=== PATIENT | male | born 1965 | race Caucasian/White ===

== ENCOUNTER 2017-11-02 11:44 | Outpatient (CLI) | payer BC ==
[~2017-11-02] VITALS: Ht 190.5 cm; Wt 108.5 kg
--- NOTE | ~2017-11-02 | HP ---
PATIENT: REG ENRIQUEZ MEDICAL RECORD: [id number] ACCOUNT: [id number] LOCATION:[facility] [place] 67 ADMISSION DATE: 11/02/17 HISTORY AND PHYSICAL EXAMINATION ADMITTING DIAGNOSES: 1. Claudication, left leg. 2. Peripheral vascular disease. 3. Angina. 4. Coronary disease. HISTORY OF PRESENT ILLNESS: This is a gentleman with a past history of coronary disease as well as peripheral vascular disease, presents with left leg pain as well as anginal symptomatology. Troponin is elevated. EKG has nonspecific ST-T abnormalities. His left leg intervention was approximately a year and a half ago, was only balloon expandable and balloon angioplasty. This was done in [place]. His last cardiac intervention, which was also done in [place], was approximately 3 years ago. He is not on Plavix at this time. ALLERGIES: No known drug allergies. REVIEW OF SYSTEMS: The patient reports easy bruising but reports no swollen glands. The patient reports no fever, no night sweats, no significant weight gain, no significant weight loss. No significant exercise tolerance. The patient reports no dry eyes, no irritation, no vision change. Patient reports no difficulty hearing and no ear pain. Patient reports no frequent nose bleeds or nose and sinus problems. Patient reports on arm pain on exertion. No shortness of breath while lying down. No history of heart murmur. Patient reports no cough, no wheezing or coughing up blood. Patient reports no abdominal pain, no vomiting. Normal appetite. No diarrhea and not vomiting blood. No nausea and no constipation. Patient reports no incontinence. No difficulty urinating. No hematuria. No increased frequency. Patient reports no muscle aches. No weakness, no arthralgias, no back pain. No swelling of the extremities. Patient reports no abnormal mole, no jaundice, no rashes. Reports no loss of consciousness. No weakness and no numbness. No seizures, dizziness, or headaches. The patient reports no depression, no sleep disturbance, feeling safe in a relationship and no alcohol abuse. Patient reports on fatigue. Reports no runny nose or sinus pressure. No itching, no hives, and no frequent sneezing. PHYSICAL EXAMINATION: GENERAL APPEARANCE: Well-nourished, well-developed, appears stated age. Level of distress, comfortable. PSYCHIATRIC: Mental status, alert, normal affect. Orientation, oriented to time, place and person. EYES: Lids and conjunctiva, noninjected. No discharge, no pallor. ENT: Lips, teeth, gums, normal dentition. Oropharynx, no cyanosis, no pallor. NECK: Carotid arteries, bilateral normal upstroke, no bruits, no thrills. JUGULAR VEINS: No jugular venous pressure or distention. CERVICAL LYMPH NODES: Nontender, nonenlarged. THYROID: Not enlarged. Nontender. No nodules. LUNGS: Respiratory effort, unlabored. CHEST: Normal curvature. No thoracic deformity. No chest wall tenderness. Percussion, resonant. Auscultation, clear. No wheezes, no rales, no rhonchi. CARDIOVASCULAR: Precordial exam, nondisplaced. No heaves or pericardial HISTORY AND PHYSICAL [id number] REG ENRIQUEZ thrmayco. Rate and rhythm, regular. Heart sounds, normal S1, normal S2. No S3, no gallop, no rub. Systolic murmur, not heard. Diastolic murmur, not heard. EXTREMITIES: No cyanosis, no edema. Peripheral pulses, full and equal in all extremities, except as noted. No bruits appreciated. ABDOMEN: Soft, nondistended. Normal aorta. No bruit. Nontender. No masses. Liver, nontender, no hepatomegaly. Spleen, nontender, no splenomegaly. MUSCULOSKELETAL: No joint tenderness. No joint swelling. No erythema. NEUROLOGICAL: Normal gait, normal strength, normal tone. SKIN: Warm and dry. OVERALL IMPRESSION: Angina with elevated troponin, claudication and peripheral vascular disease, most likely he has recurrent hemodynamically significant disease, coronary and peripheral, we will proceed with angiography. Further care depends upon findings of the angiography. TRANSINT:[id number] Voice Confirmation ID: [id number] DOCUMENT ID: [id number] JASVIR PEPE MD CC: [id number] DICTATION DATE: 11/02/17 1457 PIPE FITTER HELPER: 11/02/17 1508 ADM IN [id number] [place] [address]
--- NOTE | ~2017-11-02 | DS ---
PATIENT:REG ENRIQUEZ :67 MEDICAL RECORD: [id number] DISCHARGE SUMMARY ADMISSION DATE: 11/02/17 DISCHARGE DATE: 11/03/17 DIAGNOSES: 1. Unstable angina. 2. PTCA and stent of RCA on this admission. 3. Coronary artery disease. 4. Claudication. 5. Peripheral vascular disease. 6. ENTERPRISE APPLICATION ARCHITECT and stent of left popliteal. 7. Atrial fibrillation, chronic. 8. Hyperlipidemia. HOSPITAL COURSE: Mr. Enriquez presents with unstable angina as well as claudication symptomatology, found to have significant disease of the RCA and found to have significant disease of left popliteal. He underwent successful revascularization of both territories. Discharged home with addition of aspirin and Plavix to his medical regimen. He will follow up with [facility] in one month. TRANSINT:[id number] Voice Confirmation ID: [id number] DOCUMENT ID: [id number] JASVIR PEPE MD CC: [id number] DICTATION DATE: 11/03/17 105 IMPORT SPECIALIST: 11/03/172201 DIS IN 11/03/17 [facility] [address] [id number]
--- NOTE | ~2017-11-02 | HEMODYNAMI ---
PATIENT:REG ENRIQUEZ MEDICAL RECORD: [id number] : 67 LOCATION:[facility] D.2117 ADMISSION DATE: 11/02/17 Generatedon:11/03/201710:58 Patient name: REG ENRIQUEZ Patient #: [id number] SSN: : 1965 Date of study: 11/03/2017 Page: Of Hemodynamic Procedure Report Patient Data Patient Demographics Procedure consent was obtained First Name: REG Gender: Male Last Name: MINA : 1965 Patient #: [id number] Age: 51 year(s) Race: Unknown Additional ID: [id number] Contact details Address: [address] [place] [address] State: [place] City: [facility] Zip code: [address] Admission Admission Data Admission Date: 11/02/2017 Admission Time: 14:33 Room #: D.2117 Procedure Procedure Types Cath Procedure Diagnostic Procedure LHC LHC w/Coronaries FFR/IVUS Intra-Coronary IVUS Initial PCI Procedure Coronary Stent Coronary Stent Initial Miscellaneous Procedures Moderate Sedation up to 30 minutes Peripheral Cath Diagnostic Procedure Cath Peripheral Hcwtn-Kpajwwm-Dkq-Off Peripheral vascular Intervention Angioplasty Angioplasty Tib-Per Initial Stent Stent-Tib/Per w/plasty Initial Procedure Description Procedure Date Procedure Date: 11/03/2017 Procedure Start Time: 10:12 Procedure End Time: 10:53 Procedure Staff Name Function Arabella Garcia RT Scrub Tanya Loco RT Monitor Mauri Watkins RN Nurse Evaristo Hankins MD Performing Physician Neha Cyr RN Nurse Procedure Data Cath Procedure Fluoroscopy Diagnostic fluoroscopy Total fluoroscopy Time: time: 11.7 min 11.7 min Diagnostic fluoroscopy Total fluoroscopy dose: 890 dose: 890 mGy mGy Contrast Material Contrast Material Type Amount (ml) Isovue 300 196 Entry Location Entry Primary Successful Side Size Upsize Upsize Entry Closure Succes sful Closure Location (Fr) 1 (Fr) 2 (Fr) Remarks Device Remarks Femoral Right 5 Fr 6 Fr 6 Fr Exoseal artery Short Long Estimated blood loss: 5 ml Diagnostic catheters Device Type Used For End Catheter Placement MULTIPACK JL 4.0 5Fr Left Coronary catheter Angiography MULTIPACK 3DRC 5Fr Right Coronary catheter Angiography DIAGNOSTIC IMT 5Fr Multi-vessel Catheter ([id number]) Angiography Procedure Complications No complications Procedure Medications Medication Administration Route Dosage 0.9% NaCl I.V. 100 ml/hr Oxygen NC 2 l/min Lidocaine 2% added to field 20 Heparin Flush Bag added to field 2 bags (1000units/500ml NS) Fentanyl I.V. 50 mcg Versed I.V. 1 mg Versed I.V. 1 mg Fentanyl I.V. 50 mcg Heparin Bolus I.V. 5000 units Hemodynamics Rest Heart Rate: 111 (bpm) Pressure Samples Time Site Value (mmHg) Purpose Heart Use Rate(bpm) 10:15 LV 125/30,39 Snapshot 77 Snapshots Pre Cath Intra NCS Post Cath Vital Signs Time Heart Resp SPO2 etCO2 NIBP (mmHg) Rhythm Pain Sedation Rate (ipm) (%) (mmHg) Status Level (bpm) 9:58:02 99 16 98 17.2 170/119(161) NSR 0 (11) 10(A) , No pain 10:02:59 100 20 98 23.3 167/127(146) NSR 0 (11) 10(A) , No pain 10:07:56 91 18 98 21 157/101(125) NSR 0 (11) 10(A) , No pain 10:12:54 84 20 97 5.2 162/105(126) NSR 0 (11) 10(A) , No pain 10:17:47 90 18 96 0 151/114(135) NSR 0 (11) 9(A) , No pain 10:22:37 76 18 95 33.8 155/107(137) NSR 0 (11) 9(A) , No pain 10:28:19 93 18 94 33.1 143/92(112) NSR 0 (11) 9(A) , No pain 10:33:08 85 19 95 33 144/105(124) NSR 0 (11) 9(A) , No pain 10:37:57 85 19 94 32.3 157/100(142) NSR 0 (11) 9(A) , No pain 10:43:39 84 19 96 32.3 153/95(125) NSR 0 (11) 9(A) , No pain 10:48:30 88 19 98 32.3 154/103(126) NSR 0 (11) 10(A) , No pain 10:53:19 77 20 94 28.6 145/100(110) NSR 0 (11) 10(A) , No pain Medications Time Medication Route Dose Verified Delivered Reason Not es Effectiveness by by 9:56:42 0.9% NaCl I.V. 100ml/hr Evaristo Solomon used for Cr Cyr RN procedure 9:56:50 Oxygen NC 2 l/min Evaristo Solomon Per physician Cr Cyr RN 9:56:57 Lidocaine 2% added 20ml Evaristo Evaristo for local to vial Cr Hankins MD anesthetic field 9:57:04 Heparin Flush added 2 bags Evaristorah Mendezrey used for Bag to Cr Hankins MD procedure (1000units/500ml field NS) 10:10:39 Fentanyl I.V. 50 mcg Evaristo Solomon for sedation Cr Cyr RN 10:10:49 Versed I.V. 1 mg Evaristo Shahfany for sedation Cr Cyr RN 10:14:33 Versed I.V. 1 mg Evaristo Shahfany for sedation Cr Cyr RN 10:14:38 Fentanyl I.V. 50 mcg Evaristo Shahfany for sedation Cr Cyr RN 10:20:39 Heparin Bolus I.V. 5000 Evaristo Neha for units Cr Cyr RN anticoagulation Procedure Log Time Note 9:42:00 Mauri Watkins RN sent for patient. Start room use. 9:42:08 Time tracking: Call back 9:42:12 Plan of Care:Hemodynamics will remain stable., Cardiac rhythm will remain stable., Comfort level will be maintained., Respiratory function will remain adequate., Patient/ family verbilizes understanding of procedure., Procedure tolerated without complication., Recovers from procedure without complications.. 9:50:24 Patient received from PCU to CCL 1 Alert and oriented. Tansferred to table in Supine position. 9:50:26 Correct patient and procedure confirmed by team. 9:50:26 Warm blankets applied, and reji hugger turned on for patient comfort. 9:50:28 Signed procedure consent form obtained from patient. 9:50:29 ECG and BP/O2 sat monitors applied to patient. 9:50:31 Full Disclosure recording started 9:55:40 Vital chart was started 9:56:42 0.9% NaCl 100ml/hr I.V. was administered by Neha Cyr RN; used for procedure; 9:56:50 Oxygen 2 l/min NC was administered by Neha Cyr RN; Per physician; 9:56:57 Lidocaine 2% 20ml vial added to field was administered by Evaristo Hankins MD; for local anesthetic; 9:57:04 Heparin Flush Bag (1000units/500ml NS) 2 bags added to field was administered by Evaristo Hankins MD; used for procedure; 10:01:32 Baseline sample Acquired. 10:01:47 Rhythm: sinus tachycardia 10:02:48 H&P Date Dictated: 11/02/2017 Within 30 days and on chart.. 10:02:50 Pre-op teaching completed and patient verbalized understanding. 10:02:50 Pre-procedure instructions explained to patient. 10:02:52 Family in waiting room. 10:02:53 Patient NPO since Midnight. 10:03:04 Is the patient allergic to Iodine/contrast media? No. 10:03:05 Was the patient premedicated? No 10:03:06 Is patient on blood thinner?Yes 10:03:09 ACC The patient was administered the following blood thiners within the last 24 hours: ACCPlavix 10:03:12 Patient diabetic? No. 10:03:15 Previous problem with sedation/anesthesia? No ? 10:03:19 Snore? No 10:03:26 Sleep apnea? No 10:03:27 Deviated septum? No 10:03:28 Opens mouth fully? Yes 10:03:29 Sticks out tongue? Yes 10:03:31 Airway obstruction? No ? 10:03:35 Dentures? No ? 10:03:54 Pre procedure: right dorsailis pedis pulse 1+ Palpable, but thready & weak; easily obliterated 10:03:57 Pre procedure: left dorsailis pedis pulse 1+ Palpable, but thready & weak; easily obliterated 10:04:00 Patient pain scale 0/10 ?. 10:04:33 Lab results completed and on chart. 10:04:42 Bilateral groins area was prepped with chlora-prep and draped in sterile fashion 10:04:43 Alarms reviewed by R. N. 10:04:44 Sharps counted by scrub and verified by R.N. 10:04:48 Physician arrived 10:04:49 Final Timeout: patient, procedure, and site verified with staff and physician. All members of the team are in agreement. 10:04:49 --------ALL STOP TIME OUT------ 10:04:51 Bilateral groins site verified by team. 10:04:55 Physical assessment completed. ASA score P 2 - A patient with mild systemic disease as per Evaristo Hankins MD. 10:04:59 Sedation plan: IV Moderate Sedation Medication:Versed, Fentanyl 10:05:19 Use device set Femoral Dx 10:05:21 ACIST Syringe (48732) opened to sterile field. 10:05:22 Medline Cath Pack ([id number]) opened to sterile field. 10:05:22 Bag Decanter (2002S) opened to sterile field. 10:05:23 SHEATH 5FR [place] (PFO913) opened to sterile field. 10:05:24 DIAGNOSTIC WIRE .035 260cm J wire (614818) opened to sterile field. 10:05:25 ACIST Hand Control (69487) opened to sterile field. 10:05:26 DIAGNOSTIC Multipack 5Fr catheter set ([id number]) opened to sterile field. 10:05:26 ACIST Manifold (38362) opened to sterile field. 10:05:27 Tegaderm 4 x 4 (1626W) opened to sterile field. 10:08:26 Zero performed for pressure channel P1 10:10:39 Fentanyl 50 mcg I.V. was administered by Neha Cyr RN; for sedation; 10::49 Versed 1 mg I.V. was administered by Neha Cyr RN; for sedation; 10:12:02 Procedure started. 10:12:27 Local anesthetic to right femoral artery with Lidocaine 2% by Evaristo Hankins MD.INITIAL ACCESS ONLY 10:12:38 A 5 Fr sheath was inserted into the Right Femoral artery 10:14:33 Versed 1 mg I.V. was administered by Neha Cyr RN; for sedation; 10:14:38 Fentanyl 50 mcg I.V. was administered by Neha Cyr RN; for sedation; 10:15:10 LV hemodynamics recorded. 10:15:11 LV gram done using SALINAS 10:15:19 EF : 20 % 10:15:47 Abdominal angiogram w/ runoff was performed. 10:17:03 Catheter removed. 10:17:10 A MULTIPACK JL 4.0 5Fr catheter was advanced over the wire and used for Left Coronary Angiography. 10:17:32 LCA angiography performed. 10:17:38 Injector settings: Ml/sec: 3, Volume: 6, 10:18:14 Catheter removed. 10:18:21 A MULTIPACK 3DRC 5Fr catheter was advanced over the wire and used for Right Coronary Angiography. 10:19:08 RCA angiography performed. 10:19:10 Injector settings: Ml/sec: 3, Volume: 6, 10:19:12 Catheter removed. 10:19:13 Proceeding to intervention. 10:20:10 GUIDE 6FR HS II catheter ([id number]) opened to sterile field. 10:20:11 [place] Raymond Eagleye IVUS Catheter (67465W) opened to sterile field. 10:20:12 INFLATOR Merit BasixCompak (KZ2128) opened to sterile field. 10:20:13 SHEATH 6FR Destination (RSR01) opened to sterile field. 10:20:14 SHEATH 6FR [place] (CFL169) opened to sterile field. 10:20:23 Sheath upsized to a 6 Fr Short. 10:20:28 6 Fr hs 2 guide catheter was inserted over the wire 10:20:39 Heparin Bolus 5000 units I.V. was administered by Neha Cyr RN; for anticoagulation; 10:21:40 GLIDE WIRE Super Stiff Angled 260cm (LA8481) opened to sterile field. 10:21:45 CHOICE PT Extra Support J 300cm guide wire ([id number]) opened to sterile field. 10:22:16 TORQUE DEVICE PLASTIC .038 ( TD01) opened to sterile field. 10:22:24 choice pt wire advanced. 10:22:27 Wire advanced across lesion. 10:22:40 IVUS catheter advanced over wire. 10:24:11 IVUS pass to RCA lesion performed. 10:24:16 IVUS catheter removed over wire. 10:25:23 Inflation Number: 1 A INTEGRITY OTW 4.0 X 26 stent ([id number]) was prepped and advanced across the Mid RCA. The stent was deployed at 15 KATHIE for 0:10 (min:sec). 10:26:21 Stent catheter was removed intact over wire. 10:27:50 Inflation Number: 1 A INTEGRITY OTW 4.0 X 12 stent ([id number]) was prepped and advanced across the Prox RCA. The stent was deployed at 15 KATHIE for 0:10 (min:sec). 10:28:26 Stent catheter was removed intact over wire. 10:28:37 Wire removed. 10:28:38 Guide catheter removed. 10:29:36 A DIAGNOSTIC IMT 5Fr Catheter ([id number]) was advanced over the wire and used for Multi-vessel Angiography. 10:30:16 glide wire advanced around the horn 10:30:23 Catheter removed. 10:30:37 Sheath upsized to a 6 Fr Long. 10:33:34 CHOICE PT Extra Support J 300cm guide wire ([id number]) opened to sterile field. 10:34:07 CXI SUPPORT .018 150CM STR catheter ([id number]) opened to sterile field. 10:35:01 glide wire exchanged for choice pt wire 10:35:27 quick cross catheter advanced 10:39:02 Inflation number: 1 A EMERGE OTW 2.5 x 15 balloon ([id number]) was prepped and advanced across the Mid Anterior Tibial, Left, then inflated to 11 KATHIE for 0:10 (min:sec). 10:40:36 Balloon removed over the wire. 10:42:12 Inflation number: 2 A SABER 4.0 x 4 x 150 balloon ([id number]) was prepped and advanced across the Mid Anterior Tibial, Left, then inflated to 9 KATHIE for 0:10 (min:sec). 10:42:38 Inflation number: 3 The SABER 4.0 x 4 x 150 balloon ([id number]) was reinflated across the Mid Anterior Tibial, Left, to 9 KATIHE for 0:10 (min:sec). 10:43:29 Inflation number: 1 The SABER 4.0 x 4 x 150 balloon ([id number]) was reinflated across the Mid Popliteal, Left, to 9 KATHIE for 0:10 (min:sec). 10:43:41 Balloon removed over the wire. 10:46:05 SMART Flex 5 X 80 X 120 stent ([id number]) was deployed across Mid Popliteal, Left . 10:46:12 Stent catheter was removed intact over wire. 10:46:33 Inflation number: 2 The SABER 4.0 x 4 x 150 balloon ([id number]) was reinflated across the Mid Popliteal, Left, to 13 KATHIE for 0:10 (min:sec). 10:46:39 Inflation number: 3 The SABER 4.0 x 4 x 150 balloon ([id number]) was reinflated across the Mid Popliteal, Left, to 13 KATHIE for 0:10 (min:sec). 10:46:48 Inflation number: 4 The SABER 4.0 x 4 x 150 balloon ([id number]) was reinflated across the Mid Popliteal, Left, to 12 KATHIE for 0:10 (min:sec). 10:48:39 Balloon removed over the wire. 10:48:43 Wire removed. 10:49:05 j wire advanced 10:49:33 sheath exchanged for 6F short pinnacle 10:49:43 Sheath removed intact; hemostasis achieved with Exoseal to the Right Femoral artery. 10:49:45 Procedure ended.(Physican Out) 10:49:57 Fluoroscopy time 11.70 minutes. 10:50:01 Fluoroscopy dose: 890 mGy 10:50:01 Flurop Dose total: 890 10:50:10 Contrast amount:Isovue 300 196ml. 10:50:12 Sharps counted by scrub and verified by R.N. 10:50:16 Insertion/operative site no bleeding no hematoma. 10:50:18 Post-op/insertion site Right Femoral artery dressed using a 4 x 4 and Tegaderm. 10:50:22 Post right femoral artery:stable 10:50:26 Post procedure rhythm: unchanged. 10:50:29 Estimated blood loss: 5 ml 10:50:31 Patient needs reinforcement of post procedure teaching. 10:50:31 Post procedure instruction explained to patient.Patient verbalizes understanding. 10:52:47 Procedure type changed to Cath procedure, Diagnostic procedure, LHC, LHC w/Coronaries, FFR/IVUS, Intra-Coronary IVUS Initial, PCI procedure, Coronary Stent, Coronary Stent Initial, Miscellaneous Procedures, Moderate Sedation up to 30 minutes, Peripheral Cath Diagnostic Procedure, Cath Peripheral, Jvght-Cpqnzij-Eil-Off, Peripheral vascular Intervention, Angioplasty, Angioplasty Tib-Per Initial, Stent, Stent-Tib/Per w/plasty Initial 10:52:49 Procedure and supply charges have been captured, reviewed, submitted and are correct. 10:52:54 Procedure Complication : No complications 10:52:56 Vital chart was stopped 10:52:57 See physician's report for complete and final results. 10:53:01 Report given to [facility]. 10:53:04 Patient transfered to [facility] with Stretcher. 10:53:06 Full Disclosure recording stopped 10:53:06 Procedure ended. 10:53:15 ACC-PCI Only Patient was given prescriptions, or instructed by Evaristo Hankins MD to start/continue the following medications upon discharge: Plavix 10:53:16 End room use (Document Last) Intervention Summary Intervention Notes Time ActionType Lesion and Equipment Action# Pressure Duration Attributes Used 10:25:23 Place stent Mid RCA INTEGRITY 1 15 00:10 OTW 4.0 X 26 stent ([id number]) 10:27:50 Place stent Prox RCA INTEGRITY 1 15 00:10 OTW 4.0 X 12 stent ([id number]) 10:39:02 Inflate Mid EMERGE OTW 1 11 00:10 balloon Anterior 2.5 x 15 Tibial, balloon Left ([id number]) 10:42:12 Inflate Mid SABER 4.0 x 2 9 00:10 balloon Anterior 4 x 150 Tibial, balloon Left ([id number]) 10:42:38 Reinflate Mid SABER 4.0 x 3 9 00:10 balloon Anterior 4 x 150 Tibial, balloon Left ([id number]) 10:43:29 Reinflate Mid SABER 4.0 x 1 9 00:10 balloon Popliteal, 4 x 150 Left balloon ([id number]) 10:46:05 Deploy self Mid SMART Flex 5 1 expanding Popliteal, X 80 X 120 stent Left stent ([id number]) 10:46:33 Reinflate Mid SABER 4.0 x 2 13 00:10 balloon Popliteal, 4 x 150 Left balloon ([id number]) 10:46:39 Reinflate Mid SABER 4.0 x 3 13 00:10 balloon Popliteal, 4 x 150 Left balloon ([id number]) 10:46:48 Reinflate Mid SABER 4.0 x 4 12 00:10 balloon Popliteal, 4 x 150 Left balloon ([id number]) Device Usage Item Name Manufacture Quantity Catalog Number Hospital Part Current Min imal Lot# / Charge Number Stock Stock Serial# Code ACIST Acist 1 27946 944987 903188 564889 20 Syringe Medical (49667) Systems Inc Bag Decanter Microtek 1 2001S 490870 91605 520654 5 () Medical Inc. Medline Cath Cardinal 1 [id number] 040255 93055 056162 5 Pack Health ([id number]) SHEATH 5FR Terumo 1 DXZ172 223690 077016 056899 40 [place] (SHY183) DIAGNOSTIC St Kimo 1 526239 784017 737930 128983 30 WIRE .035 260cm J wire (286630) ACIST Hand Acist 1 52317 520695 283185 567293 5 Control Medical (27512) Systems Inc ACIST Acist 1 76116 666837 948101 073237 5 Manifold Medical (65843) Systems Inc DIAGNOSTIC Cardinal 1 JG3897 287428 87092 816520 30 Multipack Health 5Fr catheter set (OK0829) Tegaderm 4 x 3M 1 1626W 584324 424107 101762 5 4 (1626W) MULTIPACK JL Cardinal 1 876283 5 4.0 5Fr Health catheter MULTIPACK Cardinal 1 940092 5 3DRC 5Fr Health catheter GUIDE 6FR HS Medtronic 1 [id number] 432501 43600 451193 1 II catheter (QS4WMPI) [place] 1 69744A 155601 339246 090211 8 Raymond Eagleye IVUS Catheter (07363I) INFLATOR Merit 1 YF8970 523557 474459 835693 15 Dixon Technologies Medical BasixCompak (VA1700) SHEATH 6FR Terumo 1 RSR01 143373 39424 924477 5 Destination (RSR01) SHEATH 6FR Terumo 1 XTC086 971327 072403 232069 40 [place] (QFB251) GLIDE WIRE Terumo 1 LN5322 050128 802706 858475 5 Super Stiff Angled 260cm (ZE5202) CHOICE PT [place] 2 [id number] 086696 20190324 939974 5 [id number] Extra Scientific [id number] Support J 300cm guide wire (1324997S4) TORQUE [place] 1 TD01 345391 561057 495852 5 DEVICE Scientific PLASTIC .038 ( TD01) INTEGRITY Medtronic 1 [id number] 557579 248194 0 [id number] OTW 4.0 X 26 stent ([id number]) INTEGRITY Medtronic 1 [id number] 287941 894083 7 [id number] OTW 4.0 X 12 stent ([id number]) DIAGNOSTIC [place] 1 [id number] 315105 592145 99590 5 IMT 5Fr Scientific Catheter ([id number]) CXI SUPPORT Cook Medical 1 L79860 506413 876143 546458 5 2110584 .018 150CM STR catheter (K29157) EMERGE OTW [place] 1 [id number] 557777 975817 968473 5 [id number] 2.5 x 15 Scientific balloon ([id number]) SABER 4.0 x Cardinal 1 [id number] 424397 470448 5 4 x 150 Health balloon ([id number]) SMART Flex 5 Cardinal 1 [id number] 908182 463505 0 69646 X 80 X 120 Health stent ([id number]) Signature Audit [place] Stage Time Signature Unsigned Intra-Procedure 11/03/2017 Tanya Loco 10:58:02 AM RT(R) Signatures Monitor : Tanya Loco RT Signature : Date : Time : [id number] [place] [address]
--- NOTE | ~2017-11-02 | OP ---
PATIENT NAME: REG ENRIQUEZ MEDICAL RECORD: [id number] :67 LOCATION:D.M2 D.2117 ADMISSION DATE:11/02/17 SURGEON: JASVIR PEPE MD DATE OF OPERATION: 11/03/2017 PROCEDURES: 1. PTCA and stent, RCA. 2. Intravascular ultrasound. 3. Left heart catheterization. 4. Selective coronary angiography. 5. Left ventriculogram. INDICATIONS: Unstable angina and coronary artery disease. PROCEDURE IN DETAIL: After informed consent was obtained and after detailed explanation of risks and benefits as well as alternative therapies, the patient elected to proceed with angiogram and angioplasty. The right femoral area was prepped and draped in normal sterile fashion. The right femoral artery was cannulated via modified Seldinger technique with placement of a 6-Kyrgyz sheath. All catheters were exchanged through this sheath. FINDINGS: The left ventriculogram was performed in standard 30-degree SALINAS view, reveals global hypokinesis throughout all segments. Overall ejection fraction is 20%. SELECTIVE CORONARY ANGIOGRAPHY: 1. Left main shows no significant angiographic disease. 2. Left anterior descending has mild irregularities, but no flow-limiting stenosis. 3. Left circumflex has mild irregularities, but no flow-limiting stenosis. 4. Right coronary has greater than 80% stenosis times 2, confirmed by intravascular ultrasound. PTCA AND STENT OF THE RCA: Stents used were 4.0 x 26 and 4.0 x 12, both Integrity stents. Result was 0% residual stenosis. OVERALL IMPRESSION: Successful PTCA and stent of the right coronary artery, going from 80% initial stenosis times 2 to 0% residual. TRANSINT:[id number] Voice Confirmation ID: [id number] DOCUMENT ID: [id number] JASVIR PEPE MD CC: [id number] DICTATION DATE: 11/03/17 1054 CHIPPER OPERATOR: 11/03/17 1534 ADM IN [facility] [address] [place] [address]
--- NOTE | ~2017-11-02 | OP ---
PATIENT NAME: REG ENRIQUEZ MEDICAL RECORD: [id number] :67 LOCATION:D.M2 D.2117 ADMISSION DATE:11/02/17 SURGEON: JASVIR PEPE MD DATE OF OPERATION: 11/03/2017 PROCEDURES: 1. Stent placement, popliteal, left. 2. FELT STRIP FINISHER, popliteal, left. 3. FELT STRIP FINISHER, anterior tibial, left. 4. Aortofemoral runoff. 5. Abdominal aortography. INDICATIONS: Claudication and peripheral vascular disease. PROCEDURE IN DETAIL: After informed consent was obtained and after detailed explanation of risks and benefits as well as alternative therapies, the patient elected to proceed with angiogram and angioplasty. The right femoral area was prepped and draped in normal sterile fashion. The right femoral artery was cannulated via modified Seldinger technique with placement of 6-Albanian kedgha-qck-shpa sheath. All catheters were exchanged through the sheath. FINDINGS: Abdominal aortography was performed. The catheter was pulled down for aortofemoral runoff. Abdominal aortography reveals no significant abdominal aortic disease. No dissection or aneurysm formation. RIGHT LEG: A. Iliac: The common internal and external iliacs have mild irregularities, but no flow-limiting stenosis. B. Femoral system: The common superficial and deep femoral have mild irregularities, but no flow-limiting stenosis. B. Popliteal and infrapopliteal vessels are patent with good 3-vessel runoff to the foot. LEFT LEG: A. Iliac: The common internal and external iliacs have mild irregularities, but no flow-limiting stenosis. B. Femoral system: The common superficial and deep femoral have mild irregularities, but no flow-limiting stenosis. C. Popliteal and infrapopliteal vessels: The popliteal is totally occluded in distal aspect. Posterior tibial and peroneal appear to be totally occluded. The anterior tibial does reconstitute after the total occlusion. FELT STRIP FINISHER AND STENT OF LEFT POPLITEAL AND ANTERIOR TIBIAL: We were able to wire through the total occlusion into the patent anterior tibial. We ballooned the anterior tibial with 4-0 and 5-0 balloon. We stented the popliteal with a 5 x 80 SMART stent. Result was 0% residual stenosis with yazidi of brisk distal flow through the popliteal leading into the anterior tibial and down to the foot. OVERALL IMPRESSION: Successful FELT STRIP FINISHER and stent of the left popliteal, going from 100% initial stenosis to 0% residual. TRANSINT:[id number] Voice Confirmation ID: [id number] DOCUMENT ID: [id number] OPERATIVE REPORT [id number] REG ENRIQUEZ JEFFREY MD CC: [id number] DICTATION DATE: 11/03/17 1057 COMPOUNDING AND FINISHING SUPERVISOR: 11/03/17 1545 ADM IN [facility] [address] [place] [id number]
[2017-11-02 12:10] LABS: BASOPHILS 0.4 % (0-2); HEMATOCRIT 44.2 % (42.0-54.0); HEMOGLOBIN 14.8 g/dL (13.5-17.5); IMMATURE GRANULOCYTES 0.2 % (0-5); LYMPHOCYTES 24.3 % (15-50); MCH 30.6 pg (26.0-34.0); MCHC 33.5 g/dL (31.0-37.0); MCV 91.5 fL (80.0-100.0); MEAN PLATELET VOLUME 10.3 fL (7.4-10.4); MONOCYTES 5.5 % (2-11); NEUTROPHILS 66.6 % (40-80); PLATELET COUNT 268 10x3/uL (130-400); RBC 4.83 10x6/uL (4.20-6.10); RDW 14.1 % (11.5-14.5); WBC 10.4 10x3/uL (4.8-10.8)
[2017-11-02 12:24] LABS: ALBUMIN 3.6 g/dL (3.4-5.0); ALKALINE PHOSPHATASE 55 U/L (46-116); ALT (SGPT) 30 U/L (10-68); BILIRUBIN - TOTAL 0.92 mg/dL (0.2-1.3); CALC OSMOLALITY 286 mosm/kg (275-300); CALCIUM 9.4 mg/dL (8.5-10.1); CARBON DIOXIDE 29.9 mmol/L (21.0-32.0); CHLORIDE - SERUM 101 mmol/L (98-107); CREATININE - SERUM 1.5 mg/dL (0.6-1.3); GLUCOSE 215 mg/dL (74-106); POTASSIUM - SERUM 3.5 mmol/L (3.5-5.1); SODIUM 139 mmol/L (136-145); UREA NITROGEN 20 mg/dL (7-18); eGFR NON AFRICAN AMERICAN 53 mL/min (90-120)
[2017-11-02 12:40] LABS: CKMB 4.5 U/L (0.0-3.6)
[2017-11-02 12:42] LABS: TROPONIN-I 0.072 ng/mL (0.000-0.060)
[2017-11-02 13:11] LABS: APPEARANCE CLEAR (CLEAR); BILIRUBIN NEGATIVE (NEGATIVE); COLOR YELLOW (YELLOW); GLUCOSE NEGATIVE (NEGATIVE); KETONE NEGATIVE (NEGATIVE); NITRITE NEGATIVE (NEGATIVE); PROTEIN 2+ mg/dL (NEGATIVE); UROBILINOGEN NORMAL (NORMAL)
[2017-11-02 13:12] LABS: BACTERIA FEW /hpf (NONE SEEN); EPITHELIAL CELLS NSEEN /hpf (0-5); RED CELLS - URINE 0-5 /hpf (0-5); WHITE CELLS - URINE NSEEN /hpf (0-5)
[2017-11-02 17:27] VITALS: Ht 190.5 cm; Wt 108.5 kg
[2017-11-02] MEDS ORDERED: LASIX40 MG PO (17:41)
[2017-11-02] MEDS ORDERED: ZESTRIL40 MG PO (17:41)
[2017-11-02] MEDS ORDERED: ALDACTONE50 MG PO (17:42)
[2017-11-02 19:07] LABS: CREATINE KINASE 110 UL (21-232)
[2017-11-02 20:00] VITALS: BP 166/106
[2017-11-03] VITALS: BP 154/111
[2017-11-03 01:23] LABS: CKMB 1.8 U/L (0.0-3.6); CREATINE KINASE 206 UL (21-232); TROPONIN-I 0.059 ng/mL (0.000-0.060)
[2017-11-03 04:00] VITALS: BP 168/106
[2017-11-03 06:43] LABS: BASOPHILS 0.4 % (0-2); EOSINOPHILS 4.6 % (0-7); HEMATOCRIT 41.3 % (42.0-54.0); HEMOGLOBIN 13.8 g/dL (13.5-17.5); IMMATURE GRANULOCYTES 0.2 % (0-5); LYMPHOCYTES 17.4 % (15-50); MCH 30.3 pg (26.0-34.0); MCHC 33.4 g/dL (31.0-37.0); MCV 90.8 fL (80.0-100.0); MONOCYTES 4.8 % (2-11); NEUTROPHILS 72.6 % (40-80); PLATELET COUNT 242 10x3/uL (130-400); RBC 4.55 10x6/uL (4.20-6.10); RDW 14.1 % (11.5-14.5); WBC 9.8 10x3/uL (4.8-10.8)
[2017-11-03 06:48] LABS: ANION GAP 9.6 mmol/L (8-16); CALCIUM 8.9 mg/dL (8.5-10.1); CREATININE - SERUM 1.4 mg/dL (0.6-1.3); POTASSIUM - SERUM 3.6 mmol/L (3.5-5.1)
[2017-11-03 09:20] VITALS: BP 150/106
[2017-11-03 11:43] VITALS: BP 143/100
[2017-11-03] MEDS ORDERED: PLAVIX75 MG PO (12:02)
[2017-11-03 16:10] VITALS: BP 128/66
== END 2017-11-03 16:00 | disposition home or self-care (01) ==
LOC: OBSVTIME → D.ER 11:44 → D.OPS 11:44 → EDSTATUS 12:52 → D.ER 14:33 → D.SDCHOLD 14:33 → OBSVTIME 14:34 → D.SDCHOLD 15:52 → D.M2 15:52 → D.OPS 11-03 16:00 → D.M2 11-03 16:00
PROVIDERS: Emergency Medicine; Internal Medicine Interventional Cardiology
DX: I25.119 Atherosclerotic heart disease of native coronary artery with unspecified angina pectoris (principal); I70.212 Atherosclerosis of native arteries of extremities with intermittent claudication, left leg; I10 Essential (primary) hypertension; I48.91 Unspecified atrial fibrillation; Z01.812 Encounter for preprocedural laboratory examination

== ENCOUNTER 2017-12-02 14:32 | Emergency (ER) | payer BC ==
[~2017-12-02 14:32] MED LIST: ALDACTONE50 MG PO; LASIX40 MG PO; PLAVIX75 MG PO; ZESTRIL40 MG PO
[2017-12-02 14:56] LABS: BASOPHILS 0.4 % (0-2); HEMATOCRIT 39.7 % (42.0-54.0); IMMATURE GRANULOCYTES 0.3 % (0-5); LYMPHOCYTES 30.2 % (15-50); MCH 29.7 pg (26.0-34.0); MCHC 32.7 g/dL (31.0-37.0); MCV 90.6 fL (80.0-100.0); MEAN PLATELET VOLUME 10.3 fL (7.4-10.4); MONOCYTES 5.3 % (2-11); NEUTROPHILS 61.8 % (40-80); PLATELET COUNT 270 10x3/uL (130-400); RBC 4.38 10x6/uL (4.20-6.10); RDW 13.3 % (11.5-14.5); WBC 11.2 10x3/uL (4.8-10.8)
[2017-12-02 15:15] LABS: ALBUMIN 3.5 g/dL (3.4-5.0); ANION GAP 15.4 mmol/L (8-16); BILIRUBIN - TOTAL 0.67 mg/dL (0.2-1.3); CALCIUM 9.6 mg/dL (8.5-10.1); CARBON DIOXIDE 25.7 mmol/L (21.0-32.0); CREATININE - SERUM 1.6 mg/dL (0.6-1.3); POTASSIUM - SERUM 4.1 mmol/L (3.5-5.1); PROTEIN - SERUM 8.4 g/dL (6.4-8.2)
[2017-12-02 16:15] LABS: APTT 30.3 SECONDS (22.8-39.4); INR 1.11 (0.85-1.17); PROTIME 13.9 SECONDS (11.6-15.0)
[2017-12-02 16:24] LABS: TROPONIN-I 0.057 ng/mL (0.000-0.060); URIC ACID 7.1 mg/dL (2.6-7.2)
[2017-12-09 15:21] LABS: AEROBE ID Final report (())
== END 2017-12-02 20:09 | disposition home or self-care (01) ==
LOC: D.ER 14:32
PROVIDERS: Emergency Medicine; Nurse Practitioner Family
DX: L02.612 Cutaneous abscess of left foot (principal); M79.675 Pain in left toe(s); Z86.718 Personal history of other venous thrombosis and embolism; I70.202 Unspecified atherosclerosis of native arteries of extremities, left leg; R73.9 Hyperglycemia, unspecified

== ENCOUNTER 2018-01-21 20:46 | Inpatient (IN) | payer BC ==
[~2018-01-21] VITALS: Ht 190.5 cm; Wt 106.1 kg
--- NOTE | ~2018-01-21 | OP ---
PATIENT NAME: REG ENRIQUEZ MEDICAL RECORD: [id number] :67 LOCATION:D.MS Gooden2215 ADMISSION DATE:01/21/18 SURGEON: REG HARRIS MD DATE OF OPERATION: 01/23/2018 PREOPERATIVE DIAGNOSIS: Osteomyelitis of the left great toe. POSTOPERATIVE DIAGNOSIS: Osteomyelitis of the left great toe. PROCEDURES: Excisional debridement of the left great toe, deep to include skin, subcutaneous tissue, portions of fat, fascia, muscle, and bone. SURGEON: Reg Harris MD ANESTHESIA: General. INTRAOPERATIVE COMPLICATIONS: None. SUMMARY OF PATHOLOGIC FINDINGS: The MRI showed the patient to have osteomyelitis. The patient did indeed have osteomyelitis communicating with the joint that required curettage and portions of the articular surface as well as the bone itself. Cultures were taken. INDICATIONS: Mr. Reg Enriquez is a 52-year-old recently diagnosed diabetic who came in with a draining toe ulcer. MRI subsequently showed osteomyelitis. Orthopedics was consulted for the above procedure. OPERATIVE SUMMARY IN DETAIL: After obtaining the appropriate preoperative orthopedic surgery consent as well as anesthetic consultation, evaluation and clearance, the patient was brought to the operating room and placed on the operating table in supine position. After general laryngeal mask airway anesthesia was administered, the left lower extremity was prepped and draped in routine sterile fashion. The area of drainage was gently incised and immediate purulence was noted. Cultures were taken deep to this point to avoid any skin sabrina. Dissection was carried down to the bone itself. A combination of curettage and rongeurs were utilized to clean any infected appearing tissue including the bone itself. The bone was curettaged until it became stable and not soft. Then it was copiously irrigated and packed with quarter-inch iodoform gauze. Sterile dressings were applied. The patient was awakened and taken to recovery room in stable condition. All final sponge and instrument counts correct. TRANSINT:[id number] Voice Confirmation ID: [id number] DOCUMENT ID: [id number] STEVEN DUNN, REG LEWIS at 1117 CC: [id number] DICTATION DATE: 01/23/181814 CREW MANAGER: 01/23/18 1920 ADM IN [place] [id number] [place] [address]
[2018-01-21 21:45] LABS: BASOPHILS 0.6 % (0-2); EOSINOPHILS 14.5 % (0-7); HEMOGLOBIN 13.2 g/dL (13.5-17.5); IMMATURE GRANULOCYTES 0.3 % (0-5); LYMPHOCYTES 25.1 % (15-50); MCH 29.7 pg (26.0-34.0); MCHC 33.8 g/dL (31.0-37.0); MCV 87.8 fL (80.0-100.0); MEAN PLATELET VOLUME 10.2 fL (7.4-10.4); MONOCYTES 5.8 % (2-11); NEUTROPHILS 53.7 % (40-80); PLATELET COUNT 278 10x3/uL (130-400); RBC 4.44 10x6/uL (4.20-6.10); RDW 13.9 % (11.5-14.5); WBC 11.6 10x3/uL (4.8-10.8)
[2018-01-21 22:46] LABS: ALBUMIN 3.2 g/dL (3.4-5.0); ANION GAP 15.6 mmol/L (8-16); BILIRUBIN - TOTAL 0.2 mg/dL (0.2-1.3); CALCIUM 9.4 mg/dL (8.5-10.1); CARBON DIOXIDE 25.2 mmol/L (21.0-32.0); CREATININE - SERUM 1.4 mg/dL (0.6-1.3); MAGNESIUM - SERUM 1.6 mg/dL (1.8-2.4); POTASSIUM - SERUM 3.8 mmol/L (3.5-5.1); PROTEIN - SERUM 7.8 g/dL (6.4-8.2)
[2018-01-22 16:24] VITALS: BP 162/99
[2018-01-22 16:27] VITALS: BP 162/99; BMI 29.4
[2018-01-22 20:00] VITALS: BP 137/85
[2018-01-23] VITALS: BP 126/62
[2018-01-23 04:00] VITALS: BP 123/81
[2018-01-23 05:41] LABS: BASOPHILS 0.4 % (0-2); HEMATOCRIT 40.8 % (42.0-54.0); HEMOGLOBIN 13.9 g/dL (13.5-17.5); IMMATURE GRANULOCYTES 0.2 % (0-5); LYMPHOCYTES 28.7 % (15-50); MCH 29.8 pg (26.0-34.0); MCHC 34.1 g/dL (31.0-37.0); MCV 87.4 fL (80.0-100.0); MEAN PLATELET VOLUME 10.3 fL (7.4-10.4); MONOCYTES 5.1 % (2-11); NEUTROPHILS 48.6 % (40-80); PLATELET COUNT 295 10x3/uL (130-400); RBC 4.67 10x6/uL (4.20-6.10); WBC 12.5 10x3/uL (4.8-10.8)
[2018-01-23 06:17] LABS: ALBUMIN 2.9 g/dL (3.4-5.0); ANION GAP 14.5 mmol/L (8-16); BILIRUBIN - TOTAL 0.27 mg/dL (0.2-1.3); CALCIUM 9.2 mg/dL (8.5-10.1); CARBON DIOXIDE 24.4 mmol/L (21.0-32.0); CREATININE - SERUM 1.3 mg/dL (0.6-1.3); POTASSIUM - SERUM 3.9 mmol/L (3.5-5.1); PROTEIN - SERUM 7.5 g/dL (6.4-8.2)
[2018-01-23 07:51] VITALS: BP 143/68
[2018-01-23 12:24] VITALS: BP 142/81
[2018-01-23 16:39] VITALS: BP 129/86
[2018-01-23 19:36] VITALS: BP 114/76
[2018-01-24] VITALS: BP 121/72
[2018-01-24 04:00] VITALS: BP 121/68
[2018-01-24 05:26] LABS: BASOPHILS 0.4 % (0-2); EOSINOPHILS 14.7 % (0-7); HEMOGLOBIN 12.5 g/dL (13.5-17.5); IMMATURE GRANULOCYTES 0.2 % (0-5); LYMPHOCYTES 30.2 % (15-50); MCH 29.1 pg (26.0-34.0); MCHC 32.9 g/dL (31.0-37.0); MCV 88.6 fL (80.0-100.0); MEAN PLATELET VOLUME 9.9 fL (7.4-10.4); MONOCYTES 5.5 % (2-11); PLATELET COUNT 262 10x3/uL (130-400); RBC 4.29 10x6/uL (4.20-6.10); WBC 11.4 10x3/uL (4.8-10.8)
[2018-01-24 05:46] LABS: ALBUMIN 2.5 g/dL (3.4-5.0); ANION GAP 11.1 mmol/L (8-16); BILIRUBIN - TOTAL 0.19 mg/dL (0.2-1.3); CALCIUM 8.5 mg/dL (8.5-10.1); CREATININE - SERUM 1.2 mg/dL (0.6-1.3); POTASSIUM - SERUM 4.1 mmol/L (3.5-5.1); PROTEIN - SERUM 6.8 g/dL (6.4-8.2)
[2018-01-24 09:07] VITALS: BP 126/98
[2018-01-24 11:26] VITALS: BP 165/81
[2018-01-24 13:52] VITALS: BMI 29.2
[2018-01-24 16:17] VITALS: BP 130/74
[2018-01-24 19:57] VITALS: BP 150/78
[2018-01-25] VITALS: BP 124/62
[2018-01-25 04:00] VITALS: BP 115/60
[2018-01-25 05:41] LABS: BASOPHILS 0.5 % (0-2); EOSINOPHILS 18.8 % (0-7); HEMATOCRIT 37.2 % (42.0-54.0); HEMOGLOBIN 12.5 g/dL (13.5-17.5); IMMATURE GRANULOCYTES 0.2 % (0-5); LYMPHOCYTES 34.1 % (15-50); MCH 29.4 pg (26.0-34.0); MCHC 33.6 g/dL (31.0-37.0); MCV 87.5 fL (80.0-100.0); MONOCYTES 4.7 % (2-11); NEUTROPHILS 41.7 % (40-80); PLATELET COUNT 268 10x3/uL (130-400); RBC 4.25 10x6/uL (4.20-6.10); RDW 13.7 % (11.5-14.5); WBC 10.1 10x3/uL (4.8-10.8)
[2018-01-25 06:32] LABS: ALBUMIN 2.7 g/dL (3.4-5.0); ANION GAP 12.8 mmol/L (8-16); BILIRUBIN - TOTAL 0.3 mg/dL (0.2-1.3); CALCIUM 8.6 mg/dL (8.5-10.1); CARBON DIOXIDE 27.3 mmol/L (21.0-32.0); CREATININE - SERUM 1.2 mg/dL (0.6-1.3); POTASSIUM - SERUM 4.1 mmol/L (3.5-5.1); PROTEIN - SERUM 6.6 g/dL (6.4-8.2)
[2018-01-25 08:54] VITALS: BP 152/86
[2018-01-25 11:50] VITALS: BP 148/74
[2018-01-25 15:57] VITALS: BP 146/68
[2018-01-25 23:18] VITALS: BP 174/88
[2018-01-26 05:17] VITALS: BP 137/78
[2018-01-26 06:30] LABS: BASOPHILS 0.5 % (0-2); EOSINOPHILS 18.6 % (0-7); HEMATOCRIT 41.1 % (42.0-54.0); IMMATURE GRANULOCYTES 0.3 % (0-5); LYMPHOCYTES 30.1 % (15-50); MCH 29.7 pg (26.0-34.0); MCHC 34.1 g/dL (31.0-37.0); MCV 87.1 fL (80.0-100.0); MEAN PLATELET VOLUME 9.6 fL (7.4-10.4); NEUTROPHILS 45.5 % (40-80); PLATELET COUNT 264 10x3/uL (130-400); RBC 4.72 10x6/uL (4.20-6.10); RDW 13.6 % (11.5-14.5); WBC 9.8 10x3/uL (4.8-10.8)
[2018-01-26 06:54] LABS: ANION GAP 11.7 mmol/L (8-16); BILIRUBIN - TOTAL 0.4 mg/dL (0.2-1.3); CALCIUM 9.2 mg/dL (8.5-10.1); CARBON DIOXIDE 29.2 mmol/L (21.0-32.0); CREATININE - SERUM 1.2 mg/dL (0.6-1.3); POTASSIUM - SERUM 3.9 mmol/L (3.5-5.1); PROTEIN - SERUM 7.1 g/dL (6.4-8.2)
[2018-01-26 08:14] VITALS: BP 141/89
[2018-01-26 12:13] VITALS: BP 136/90
[2018-01-26 16:03] VITALS: BP 130/78
[2018-01-27 04:59] LABS: BASOPHILS 0.5 % (0-2); EOSINOPHILS 18.5 % (0-7); HEMOGLOBIN 14.2 g/dL (13.5-17.5); IMMATURE GRANULOCYTES 0.2 % (0-5); LYMPHOCYTES 28.2 % (15-50); MCH 29.8 pg (26.0-34.0); MCHC 34.6 g/dL (31.0-37.0); MEAN PLATELET VOLUME 9.9 fL (7.4-10.4); MONOCYTES 5.7 % (2-11); NEUTROPHILS 46.9 % (40-80); PLATELET COUNT 284 10x3/uL (130-400); RBC 4.77 10x6/uL (4.20-6.10); RDW 13.8 % (11.5-14.5); WBC 10.8 10x3/uL (4.8-10.8)
[2018-01-27 05:16] LABS: ALBUMIN 2.9 g/dL (3.4-5.0); ANION GAP 12.1 mmol/L (8-16); BILIRUBIN - TOTAL 0.2 mg/dL (0.2-1.3); CALCIUM 9.1 mg/dL (8.5-10.1); CARBON DIOXIDE 28.4 mmol/L (21.0-32.0); CREATININE - SERUM 1.3 mg/dL (0.6-1.3); POTASSIUM - SERUM 3.5 mmol/L (3.5-5.1); PROTEIN - SERUM 7.5 g/dL (6.4-8.2)
[2018-01-27 05:26] VITALS: BP 118/97
[2018-01-27 09:01] VITALS: BP 175/68
[2018-01-27 13:06] VITALS: BP 156/67
[2018-01-27 15:22] VITALS: BP 108/60
[2018-01-27 17:11] LABS: AEROBE ID Final report (())
[2018-01-27 21:33] VITALS: Ht 190.5 cm; Wt 106.1 kg
[2018-01-27 21:56] VITALS: BP 156/95
[2018-01-28 05:18] VITALS: BP 101/77
[2018-01-28 05:19] LABS: BASOPHILS 0.7 % (0-2); EOSINOPHILS 19.8 % (0-7); HEMATOCRIT 41.4 % (42.0-54.0); HEMOGLOBIN 14.1 g/dL (13.5-17.5); IMMATURE GRANULOCYTES 0.3 % (0-5); LYMPHOCYTES 27.6 % (15-50); MCH 29.4 pg (26.0-34.0); MCHC 34.1 g/dL (31.0-37.0); MCV 86.4 fL (80.0-100.0); MONOCYTES 7.4 % (2-11); NEUTROPHILS 44.2 % (40-80); PLATELET COUNT 260 10x3/uL (130-400); RBC 4.79 10x6/uL (4.20-6.10); RDW 13.7 % (11.5-14.5); WBC 10.9 10x3/uL (4.8-10.8)
[2018-01-28 05:45] LABS: ALBUMIN 2.9 g/dL (3.4-5.0); ANION GAP 11.7 mmol/L (8-16); BILIRUBIN - TOTAL 0.37 mg/dL (0.2-1.3); C-REACTIVE PROTEIN 0.2 mg/dL (0.0-0.9); CALCIUM 9.5 mg/dL (8.5-10.1); CARBON DIOXIDE 30.1 mmol/L (21.0-32.0); CREATININE - SERUM 1.4 mg/dL (0.6-1.3); POTASSIUM - SERUM 3.8 mmol/L (3.5-5.1); PROTEIN - SERUM 7.5 g/dL (6.4-8.2)
[2018-01-28 07:12] LABS: ERYTHROCYTE SEDIMENTATION RATE 35 mm/hr (0-20)
[2018-01-28 09:13] VITALS: BP 117/72
[2018-01-28] MEDS ORDERED: ROCEPHIN 2 GM/D52 G1 IV (13:18)
[2018-01-28] MEDS ORDERED: GLUCOPHAGE500 MG PO (13:18)
[2018-01-28] MEDS ORDERED: ULORIC40 MG PO (13:19)
[2018-01-28] MEDS ORDERED: ELIQUIS5 MG PO (13:36)
[2018-01-28 15:00] VITALS: BP 119/85
[2018-01-29 16:16] LABS: AEROBE ID Final report (())
== END 2018-01-28 17:19 | disposition home health service (06) | DRG 982 ==
LOC: D.ER 20:46 → D.MS 22:19 → D.EDHOLD 22:19 → D.MS 01-22 15:35
PROVIDERS: Emergency Medicine; Family Medicine; Orthopaedic Surgery
PROC: 0QBR0ZZ Excision of Left Toe Phalanx, Open Approach (ICD-10-PCS; principal; 2018-01-23 15:15)
PROC: 02HV33Z Insertion of Infusion Device into Superior Vena Cava, Percutaneous Approach (ICD-10-PCS; 2018-01-28)
PROC: B548ZZA Ultrasonography of Superior Vena Cava, Guidance (ICD-10-PCS; 2018-01-28)
DX: L03.032 Cellulitis of left toe (principal); M86.9 Osteomyelitis, unspecified; E11.69 Type 2 diabetes mellitus with other specified complication; L97.529 Non-pressure chronic ulcer of other part of left foot with unspecified severity; I11.0 Hypertensive heart disease with heart failure; I50.9 Heart failure, unspecified; I48.91 Unspecified atrial fibrillation; I73.9 Peripheral vascular disease, unspecified; Z86.718 Personal history of other venous thrombosis and embolism; I25.10 Atherosclerotic heart disease of native coronary artery without angina pectoris

== ENCOUNTER → 2018-02-03 21:54 | Outpatient (CLI) | payer BC ==
[2018-01-27 21:33] VITALS: BMI 29.2
[~2018-02-03 21:54] MED LIST changes: +ELIQUIS5 MG PO; +GLUCOPHAGE500 MG PO; +ROCEPHIN 2 GM/D52 G1 IV; +ULORIC40 MG PO
[2018-02-03 22:55] LABS: BASOPHILS 0.5 % (0-2); EOSINOPHILS 17.8 % (0-7); HEMATOCRIT 42.7 % (42.0-54.0); HEMOGLOBIN 14.5 g/dL (13.5-17.5); IMMATURE GRANULOCYTES 0.4 % (0-5); LYMPHOCYTES 28.8 % (15-50); MCV 88.4 fL (80.0-100.0); MEAN PLATELET VOLUME 11.1 fL (7.4-10.4); NEUTROPHILS 47.5 % (40-80); PLATELET COUNT 275 10x3/uL (130-400); RBC 4.83 10x6/uL (4.20-6.10); WBC 11.2 10x3/uL (4.8-10.8)
[2018-02-03 23:06] LABS: CREATININE - SERUM 1.3 mg/dL (0.6-1.3)
[2018-02-03 23:58] LABS: ERYTHROCYTE SEDIMENTATION RATE 50 mm/hr (0-20)
== END | disposition home or self-care (01) ==
LOC: D.LABREF 21:54
PROVIDERS: Student in an Organized Health Care Education/Training Program
DX: L97.509 Non-pressure chronic ulcer of other part of unspecified foot with unspecified severity (principal); L03.90 Cellulitis, unspecified; L73.9 Follicular disorder, unspecified; D72.829 Elevated white blood cell count, unspecified

== ENCOUNTER → 2018-02-10 13:58 | Outpatient (CLI) | payer BC ==
[2018-01-27 21:33] VITALS: BMI 29.2
[2018-02-10 16:09] LABS: BASOPHILS 0.5 % (0-2); EOSINOPHILS 8.3 % (0-7); HEMATOCRIT 43.1 % (42.0-54.0); IMMATURE GRANULOCYTES 0.4 % (0-5); LYMPHOCYTES 33.7 % (15-50); MCH 30.3 pg (26.0-34.0); MCHC 34.8 g/dL (31.0-37.0); MCV 87.1 fL (80.0-100.0); MEAN PLATELET VOLUME 11.4 fL (7.4-10.4); MONOCYTES 5.9 % (2-11); NEUTROPHILS 51.2 % (40-80); PLATELET COUNT 260 10x3/uL (130-400); RBC 4.95 10x6/uL (4.20-6.10); RDW 14.1 % (11.5-14.5); WBC 10.9 10x3/uL (4.8-10.8)
[2018-02-10 16:29] LABS: CREATININE - SERUM 1.5 mg/dL (0.6-1.3)
[2018-02-10 17:52] LABS: ERYTHROCYTE SEDIMENTATION RATE 19 mm/hr (0-20)
== END | disposition home or self-care (01) ==
LOC: D.LABREF 13:58
PROVIDERS: Student in an Organized Health Care Education/Training Program
DX: L97.509 Non-pressure chronic ulcer of other part of unspecified foot with unspecified severity (principal); L03.90 Cellulitis, unspecified; I73.9 Peripheral vascular disease, unspecified; D72.829 Elevated white blood cell count, unspecified

== ENCOUNTER → 2018-02-18 16:54 | Outpatient (CLI) | payer BC ==
[2018-01-27 21:33] VITALS: BMI 29.2
[2018-02-18 17:21] LABS: BASOPHILS 0.2 % (0-2); EOSINOPHILS 2.5 % (0-7); HEMOGLOBIN 14.4 g/dL (13.5-17.5); IMMATURE GRANULOCYTES 0.4 % (0-5); LYMPHOCYTES 20.2 % (15-50); MCH 30.3 pg (26.0-34.0); MCHC 35.1 g/dL (31.0-37.0); MCV 86.1 fL (80.0-100.0); MEAN PLATELET VOLUME 11.5 fL (7.4-10.4); MONOCYTES 8.3 % (2-11); NEUTROPHILS 68.4 % (40-80); PLATELET COUNT 228 10x3/uL (130-400); RBC 4.76 10x6/uL (4.20-6.10); RDW 14.2 % (11.5-14.5); WBC 14.1 10x3/uL (4.8-10.8)
[2018-02-18 17:46] LABS: C-REACTIVE PROTEIN 4.7 mg/dL (0.0-0.9); CREATININE - SERUM 1.2 mg/dL (0.6-1.3)
[2018-02-18 18:36] LABS: ERYTHROCYTE SEDIMENTATION RATE 36 mm/hr (0-20)
== END | disposition home or self-care (01) ==
LOC: D.LABREF 16:54
PROVIDERS: Student in an Organized Health Care Education/Training Program
DX: E11.621 Type 2 diabetes mellitus with foot ulcer (principal); L03.116 Cellulitis of left lower limb; L97.522 Non-pressure chronic ulcer of other part of left foot with fat layer exposed; M86.9 Osteomyelitis, unspecified

== ENCOUNTER → 2018-02-24 12:16 | Outpatient (CLI) | payer BC ==
[2018-01-27 21:33] VITALS: BMI 29.2
[2018-02-24 12:50] LABS: BASOPHILS 0.5 % (0-2); EOSINOPHILS 7.5 % (0-7); HEMATOCRIT 43.6 % (42.0-54.0); HEMOGLOBIN 15.1 g/dL (13.5-17.5); IMMATURE GRANULOCYTES 0.2 % (0-5); LYMPHOCYTES 34.4 % (15-50); MCH 30.4 pg (26.0-34.0); MCHC 34.6 g/dL (31.0-37.0); MCV 87.9 fL (80.0-100.0); MEAN PLATELET VOLUME 11.3 fL (7.4-10.4); NEUTROPHILS 50.4 % (40-80); PLATELET COUNT 264 10x3/uL (130-400); RBC 4.96 10x6/uL (4.20-6.10); RDW 14.4 % (11.5-14.5); WBC 8.3 10x3/uL (4.8-10.8)
[2018-02-24 13:16] LABS: C-REACTIVE PROTEIN 0.5 mg/dL (0.0-0.9); CREATININE - SERUM 1.4 mg/dL (0.6-1.3)
[2018-02-24 13:56] LABS: ERYTHROCYTE SEDIMENTATION RATE 35 mm/hr (0-20)
== END | disposition home or self-care (01) ==
LOC: D.LABREF 12:16
PROVIDERS: Student in an Organized Health Care Education/Training Program
DX: E11.621 Type 2 diabetes mellitus with foot ulcer (principal); L03.116 Cellulitis of left lower limb; L97.522 Non-pressure chronic ulcer of other part of left foot with fat layer exposed; M86.9 Osteomyelitis, unspecified

== ENCOUNTER → 2018-03-03 16:10 | Outpatient (CLI) | payer BC ==
[2018-01-27 21:33] VITALS: BMI 29.2
[2018-03-03 17:02] LABS: BASOPHILS 0.3 % (0-2); EOSINOPHILS 4.9 % (0-7); HEMATOCRIT 41.5 % (42.0-54.0); HEMOGLOBIN 14.4 g/dL (13.5-17.5); IMMATURE GRANULOCYTES 0.1 % (0-5); LYMPHOCYTES 38.4 % (15-50); MCH 30.3 pg (26.0-34.0); MCHC 34.7 g/dL (31.0-37.0); MCV 87.4 fL (80.0-100.0); MEAN PLATELET VOLUME 11.2 fL (7.4-10.4); MONOCYTES 5.2 % (2-11); NEUTROPHILS 51.1 % (40-80); PLATELET COUNT 246 10x3/uL (130-400); RBC 4.75 10x6/uL (4.20-6.10); RDW 14.4 % (11.5-14.5); WBC 8.6 10x3/uL (4.8-10.8)
[2018-03-03 17:27] LABS: CREATININE - SERUM 1.2 mg/dL (0.6-1.3)
[2018-03-03 19:01] LABS: ERYTHROCYTE SEDIMENTATION RATE 35 mm/hr (0-20)
== END | disposition home or self-care (01) ==
LOC: D.LABREF 16:10
PROVIDERS: Student in an Organized Health Care Education/Training Program
DX: E11.621 Type 2 diabetes mellitus with foot ulcer (principal); L97.522 Non-pressure chronic ulcer of other part of left foot with fat layer exposed; L03.116 Cellulitis of left lower limb; M86.9 Osteomyelitis, unspecified

== ENCOUNTER 2020-01-22 13:17 | Emergency (ER) | payer BC ==
[~2020-01-22] VITALS: Ht 190.5 cm; Wt 96.8 kg
[2020-01-22 13:24] VITALS: Ht 190.5 cm; Wt 96.8 kg
[2020-01-22 15:57] LABS: BASOPHILS 0.4 % (0-2); EOSINOPHILS 6.8 % (0-7); HEMATOCRIT 37.5 % (42.0-54.0); HEMOGLOBIN 11.7 g/dL (13.5-17.5); IMMATURE GRANULOCYTES 0.3 % (0-5); LYMPHOCYTES 21.7 % (15-50); MCH 28.3 pg (26.0-34.0); MCHC 31.2 g/dL (31.0-37.0); MCV 90.8 fL (80.0-100.0); MONOCYTES 6.3 % (2-11); NEUTROPHILS 64.5 % (40-80); RBC 4.13 10x6/uL (4.20-6.10); RDW 14.9 % (11.5-14.5); WBC 9.6 10x3/uL (4.8-10.8)
[2020-01-22 15:58] LABS: PLATELET COUNT 308 10x3/uL (130-400)
[2020-01-22 16:03] LABS: CALCIUM 9.6 mg/dL (8.5-10.1); CARBON DIOXIDE 26.4 mmol/L (21.0-32.0); CREATININE - SERUM 1.1 mg/dL (0.6-1.3); POTASSIUM - SERUM 4.4 mmol/L (3.5-5.1)
[2020-01-22 16:10] LABS: ALBUMIN 3.6 g/dL (3.4-5.0); BILIRUBIN - TOTAL 0.51 mg/dL (0.2-1.3); C-REACTIVE PROTEIN 2.2 mg/dL (0.0-0.9); PROTEIN - SERUM 8.3 g/dL (6.4-8.2)
[2020-01-22] MEDS ORDERED: CIPRO500 MG PO (17:37)
[2020-01-22] MEDS ORDERED: SMZ-TMP DS 800-1 TAB PO (17:37)
[2020-01-22 18:33] VITALS: BP 120/65
== END 2020-01-22 18:34 | disposition home or self-care (01) ==
LOC: D.ER 13:17
PROVIDERS: Emergency Medicine
DX: D64.9 Anemia, unspecified (principal); Z97.8 Presence of other specified devices; R79.82 Elevated C-reactive protein (CRP); I11.0 Hypertensive heart disease with heart failure; I50.9 Heart failure, unspecified; I25.2 Old myocardial infarction; Z86.73 Personal history of transient ischemic attack (TIA), and cerebral infarction without residual deficits; I48.91 Unspecified atrial fibrillation